=== PATIENT | female | born 2000 | race Caucasian/White ===

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

== ENCOUNTER 2023-03-25 12:55 | Emergency (ER) | payer BC, SELFPAY ==
--- NOTE | 2023-03-25 13:13 | EXP.UTC ---
Discharge Plan Disposition Patient Disposition: Home, Self-Care Condition: Good Prescriptions Prescriptions: New azithromycin [Zithromax] 250 mg tablet 250 mg PO UD DOSE PK Qty: 6 0RF Rx Instructions: Take two (2) tablets today, then one (1) tablet days #2 thru #5 [id number]-[id number]-[id number] [Bromfed DM] 2-30-10 mg/5 mL Syrup 5 ml PO Q6H PRN (Reason: Cough) Qty: 240 0RF Referrals Follow up/Referrals: Libra Garcia PA [Primary Care Provider] - See instructions Activity Restrictions/Add. Instructions Additional Instructions/Restrictions: Drink plenty of fluids. Take tylenol or ibuprofen for pain or fever. Take the medications as directed. Follow up with your regular doctor. GO TO THE ER FOR ANY WORSENING SYMPTOMS Clinical Impressions Clinical Impression: Viral syndrome, Sinusitis Stand Alone Forms Stand Alone Forms: Work/School Release Instructions Patient Instructions: DI for Sinusitis, DI for Viral Syndrome Discharge ED Provider: William Ambrosio [facility] [place] General Stated complaint: fever 101, congestion, headache Time Seen by Provider: 03/25/23 13:13 History of Present Illness Provider Complaint: she states that for the past 1 day she has had sinus congestion, runny nose, fever and malaise. She has had body aches also. Related Data Previous Rx's Medication Instructions Recorded azithromycin 250 mg tablet 250 mg PO UD DOSE PK #6 tabs 03/25/23 (Zithromax) cvhdembdxhnvuih-gwhrmnozurskzul-YN 5 ml PO Q6H PRN Cough #240 mL 03/25/23 2 mg-30 mg-10 mg/5 mL oral syrup (Bromfed DM) Allergies Allergy/AdvReac Type Severity Reaction Status Date / Time Unable to Assess Allergy Verified 01/14/19 13:55 [facility] Disclaimer: The information contained in this section may have been updated after the patient was seen, as this information can be updated by other users. Social History Smoking Status: Never smoker alcohol intake: never current occupational status: employed and student Travel in the last 8 weeks: None ROS Obtained: Yes All systems reviewed & no additional complaints except as documented Constitutional Constitutional: Reports poor appetite Eyes Eyes: Reports system reviewed and no additional complaints, except as documented ENT Ears, Nose, Mouth, and Throat: Reports as per HPI Cardiovascular Cardiovascular: Reports system reviewed and no additional complaints, except as documented and Denies chest pain Respiratory Respiratory: Denies shortness of breath, Denies chest congestion, Reports cough, Denies stridor and Denies wheezing Gastrointestinal Gastrointestingal: Reports system reviewed and no additional complaints, except as documented; Denies abdominal pain, diarrhea or vomiting Musculoskeletal Musculoskeletal: Reports system reviewed and no additional complaints, except as documented and Denies arthralgias Integumentary/Breasts Skin/Breast: Reports system reviewed and no additional complaints, except as documented and Denies rash Neurologic Neurologic: Denies paresthesias Allergic/Immunologic Allergic/Immunologic: Denies wheezing Physical Exam General General appearance: alert and in no apparent distress Eye Eye exam: Present normal appearance, PERRL and EOMI ENT ENT exam: Present mucous membranes moist and normal external ear exam Expanded ENT Exam External ear exam: Present normal external inspection TM/Canal exam: Bilateral TM: erythema and bulging Nose exam: Absent sinus tenderness Nasal speculum exam: Bilateral: normal Mouth exam: Present normal external inspection; Absent drooling Teeth exam: Present normal inspection Throat exam: Present tonsillar erythema and tonsillomegaly Neck Neck exam: Present normal inspection, full ROM and trachea midline; Absent tenderness, lymphadenopathy or thyromegaly Chest Chest inspection: Present normal inspection and symmetric chest wall rise; Absent tenderness or rash Respiratory Respiratory exam:
[2023-03-25 13:20] VITALS: BP 142/82; PULSE 99; RESP 20; TEMP 38; O2SAT 99; BMI 24.0
[2023-03-25 13:38] VITALS: BP 142/82; PULSE 99; RESP 20; TEMP 38; O2SAT 99
== END 2023-03-25 13:41 | disposition home or self-care (01) ==
PROVIDERS: Emergency Provider Nurse Practitioner Family; PCP Physician Assistant
DX: R50.9 Fever, unspecified (principal); R53.81 Other malaise; U07.1 COVID-19
CPT/HCPCS: 99212; 99214; G0463

== ENCOUNTER 2024-07-26 09:38 | Outpatient (CLI) | payer BC, SELFPAY ==
[2024-07-26 09:58] LABS: Basophils # 0.1 K/mm3 (0-0.2); Basophils % 0.6 % (0.1-2.0); Eosinophils # 0.2 K/mm3 (0.0-0.4); Eosinophils % 1.8 % (0.1-12.0); Hematocrit 38.5 % (37.0-47.0); Hemoglobin 13.3 g/dL (12.2-16.2); Lymphocytes # 2.5 K/mm3 (0.7-4.5); Lymphocytes % 24.9 % (10-50); Mean Corpuscular HGB Conc 34.4 g/dL (31.8-35.4); Mean Corpuscular Hemoglobin 30.1 pg (27.0-31.2); Mean Corpuscular Volume 87.4 fl (81-99); Mean Platelet Volume 8.3 fl (7.4-10.4); Monocytes # 0.5 K/mm3 (0.1-1.0); Monocytes % 4.7 % (1.7-9.3); Neutrophils # 6.9 K/mm3 (1.8-7.8); Platelet Count 286 K/mm3 (142-424); Red Cell Distribution Width 13.7 % (11.5-17.5); White Blood Count 10.1 K/mm3 (4.8-10.8)
[2024-07-26 12:25] LABS: Albumin Level 4.6 g/dl (3.5-5.0); Chloride 109 mmol/L (98-107); Potassium 3.8 mmoL/L (3.5-5.1); Sodium 142 mmol/L (136-145)
[2024-07-26 12:28] LABS: Alanine Aminotransferase 16 U/L (12-78); Albumin/Globulin Ratio 1.6 (1.1-1.8); Alkaline Phosphatase 64 U/L (38-126); Anion Gap 13.8 mEq/L (5-15); Aspartate Amino Transferase 25 U/L (14-36); Bilirubin,Total 0.7 mg/dl (0.2-1.3); Blood Urea Nitrogen 17 mg/dl (7-17); Carbon Dioxide 23 mmol/L (22.0-30.0); Estimated Glomerular Filt Rate 90 ml/min (>60); GFR (African American) 109 ML/MIN (>60); Globulin 2.8 g/dL (1.3-3.2); Total Protein,Serum 7.4 g/dl (6.3-8.2)
[2024-07-26 12:29] LABS: Calcium 9.5 mg/dl (8.4-10.2); Glucose 97 mg/dl (74-100)
[2024-07-26 12:58] LABS: Thyroid Stimulating Hormone 1.29 uIU/mL (0.465-4.68)
== END 2024-07-26 23:59 | disposition home or self-care (01) ==
PROVIDERS: PCP Nurse Practitioner Family; Visit Provider Nurse Practitioner Family
DX: R00.2 Palpitations (principal); R53.83 Other fatigue
CPT/HCPCS: 36415; 80050; 80053; 84443; 85025

== ENCOUNTER 2024-07-29 17:02 | Emergency (ER) | payer BC, SELFPAY ==
--- NOTE | 2024-07-29 17:08 | PC.NURSE ---
DR BADILLO AT BEDSIDE
[2024-07-29 17:16] VITALS: BP 141/87; PULSE 127; RESP 16; TEMP 36.4; O2SAT 99; BMI 23.1
--- NOTE | 2024-07-29 17:17 | ECG_ITS ---
APPROVED REPORT Exam: Resting ECG HR:123 bpm ECG Measurements Heart Rate 123 AXES CO 120 P 74 QRSd 90 QRS 83 QT 337 T 61 QTc 410 Conclusion SINUS TACHYCARDIA NONSPECIFIC ST & T-WAVE ABNORMALITY Electronically signed by : CAPO BADILLO, 07/29/2024 23:56:29
--- NOTE | 2024-07-29 17:18 | XR_ITS ---
PROCEDURE INFORMATION: Exam: XR Chest Exam date and time: 07/29/2024 6:52 PM Age: 24 years old Clinical indication: Sternal or substernal pain; Additional info: Cp paplitations TECHNIQUE: Imaging protocol: Radiologic exam of the chest. Views: 1 view. COMPARISON: No relevant prior studies available. FINDINGS: Lungs: Unremarkable. No consolidation. Pleural spaces: Unremarkable. No pleural effusion. No pneumothorax. Heart/Mediastinum: Unremarkable. No cardiomegaly. Bones/joints: Unremarkable. IMPRESSION: No acute findings.
[2024-07-29] MEDS: BELLADONNA ALKALOIDS 60 ML ML PO (17:29)
[2024-07-29] MEDS: FAMOTIDINE 20MG TABLET 20 MG PO (17:29)
[2024-07-29 17:30] VITALS: BP 104/70; PULSE 98; O2SAT 98
--- NOTE | 2024-07-29 17:31 | HMH.EDCP ---
Discharge Plan Disposition Patient Disposition: Home, Self-Care Prescriptions Prescriptions: New esomeprazole magnesium 20 mg capsule,delayed release(DR/EC) 20 mg PO DAILY 56 Days Qty: 56 1RF No Action azithromycin [Zithromax] 250 mg tablet 250 mg PO UD DOSE PK Qty: 6 0RF Rx Instructions: Take two (2) tablets today, then one (1) tablet days #2 thru #5 [id number]-psztpufta-VU [Bromfed DM] 2-30-10 mg/5 mL Syrup 5 ml PO Q6H PRN (Reason: Cough) Qty: 240 0RF Referrals Follow up/Referrals: Santino Sanders MD [Primary Care Provider] - See instructions Sathish Kemp II, MD [Staff Physician] - See instructions Activity Restrictions/Add. Instructions Additional Instructions/Restrictions: Call your family doctor to establish care for this visit to the emergency department and schedule follow-up within 48 hours to ensure improvement. If you have any worsening of your condition or any other concerning signs or symptoms, return to the emergency department or your primary care doctor for further evaluation. Talk to your family doctor about hyperthyroidism and potential treatment versus referral to after school program director for further evaluation. Regarding swallowing symptoms, medicine sent to pharmacy, take this each night before going to bed for 4 to 6 weeks and follow-up with gastroenterology for potential upper endoscopy. Clinical Impressions Clinical Impression: Esophagitis, Hyperthyroidism Print Language Print Language: Citizen Of [place] Discharge ED Provider: Uzair Mayfield [facility] General Chief Complaint: Chest Pain Stated Complaint: acid reflux Time Seen by Provider: 07/29/24 17:07 Mode of Arrival: Ambulatory Source of Information: Patient Limitations: No Limitations Description of Symptoms (Recalled from ER Triage Doc. by RN): pt states x1 mo. she has had burning in her lower sternal area down to her epigastric region. pt states the burning is worse when she wakes up in the am and after eating. pt reports she had an episode of N/V this am. Last night she took pepcid that provided her with some relief. pt also reports feeling like food gets lodged in her throat intermittantly. pt also reports she has been having problems with her heart racing. She is tachycardic at 127BPM. She was recently started on propanolol for this. LMP current, last BM 2d ago. History of Present Illness HPI narrative: Please note that above description of symptoms, in this electronic medical record under categorization of recalled from ER triage doctor by RN are reflective of an initial nursing assessment, however, is not reflective of my full history and physical exam that was personally taken and clarified. Consequentially, this preceding description of symptoms, which may include the patient's categorized chief complaint in the EMR, do not reflect my personal clinical impression, and the ultimate description of history of present illness and patient stated complaints should be deferred to this section of the note. Unless stated otherwise or congruent with this section of the note, additional signs, symptoms, or incongruence should be interpreted as inaccurate with my clinical impression. Related Data Previous Rx's ?Medication ?Instructions ?Recorded azithromycin 250 mg tablet 250 mg PO UD DOSE PK #6 tabs 03/25/23 (Zithromax) nphafaewkcpszkd-lrgdbuolzgezxtl-UM 5 ml PO Q6H PRN Cough #240 mL 03/25/23 2 mg-30 mg-10 mg/5 mL oral syrup (Bromfed DM) esomeprazole magnesium 20 mg 20 mg PO DAILY 8 weeks #56 caps 07/29/24 capsule,delayed release Allergies Allergy/AdvReac Type Severity Reaction Status Date / Time No Known Allergies Allergy Verified 07/29/24 17:26 [facility] Disclaimer: The information contained in this section may have been updated after the patient was seen, as this information can be updated by other users. Social History (Updated 03/25/23 @ 17:20 by William Ambrosio APRN) Smoking Status: Never smoker alcohol intake: never current occupational status: employed and student Travel in the last 8 weeks: None Have you lived/traveled outside US in past 30 days?: No Contact w/someone who lives/traveled outside US past 30 days?: No Exposure to someone with infectious disease in past 14 days?: No Do you have a fever (greater than 100.4 F or 38 C)?: No Have you tested positive for COVID-19: No Exposed to someone with COVID-19 in past 14 days?: No Do you have a sore throat?: No Do you have a cough?: No Do you have any weakness?: No Do you have any diarrhea?: No Are you experiencing any unusual bleeding?: No Do you have any muscle aches/pain?: No Do you have any abdominal pain?: No Are you experiencing loss of taste or smell?: No ROS Obtained: Yes All systems reviewed & no additional complaints except as documented Physical Exam General General appearance: alert Neck Neck exam: Present trachea midline Chest Chest inspection: Present normal inspection and symmetric chest wall rise Respiratory Respiratory exam: Present normal lung sounds bilaterally; Absent respiratory distress, wheezes, stridor, accessory muscle use or prolonged expiratory phase Cardiovascular Cardiovascular exam: Present normal rhythm, tachycardia and other (Pulses equal and symmetric in upper and lower extremities) Extremities Exam Extremities exam: Absent edema Neurological Exam Neurological exam: Present alert, oriented X3 and CN II-XII intact Skin Skin exam: Present warm and dry; Absent cyanosis, diaphoresis or pallor HEART Score HEART Score HEART Score assessment performed?: Yes HEART Score: 0 Critical Care Critical Care Time Critical Care Time: No Medical Decision Making Medical Records Medical records reviewed: Yes I reviewed the patient's medical records. Orlin Inquiry Pt receiving controlled substance: No Orlin was queried for this patient: No Vital Signs Vital Signs: 07/29/24 17:16 07/29/24 17:30 07/29/24 18:00 Temperature 97.6 F Temperature Source Oral Pulse Rate 98 H 93 H Pulse Rate [Left] 127 H Respiratory Rate 16 Blood Pressure 104/70 L 117/80 Blood Pressure [Right Arm] 141/87 H Blood Pressure Mean [Right Arm] 105 Blood Pressure Source [Right Arm] Automatic Cuff Blood Pressure Position [Right Arm] Sitting 02 Sat by Pulse Oximetry 99 98 99 Oxygen Delivery Method Room Air Room Air Room Air 07/29/24 18:30 Temperature Temperature Source Pulse Rate 122 H Pulse Rate [Left] Respiratory Rate Blood Pressure 120/78 Blood Pressure [Right Arm] Blood Pressure Mean [Right Arm] Blood Pressure Source [Right Arm] Blood Pressure Position [Right Arm] 02 Sat by Pulse Oximetry 99 Oxygen Delivery Method Room Air Lab Data Labs: Lab Results 07/29/24 17:24: WBC 14.5 H, RBC 4.58, Hgb 13.3, Hct 39.5, MCV 86.2, MCH 29.0, MCHC 33.7, RDW 12.4, Plt Count 355, MPV 11.1 H, Neut % (Auto) 88.9 H, Lymph % (Auto) 7.9 L, Barton % (Auto) 2.6, Eos % (Auto) 0.1, Baso % (Auto) 0.2, Neut # (Auto) 12.9 H, Lymph # (Auto) 1.2, Barton # (Auto) 0.4, Eos # (Auto) 0.0, Baso # (Auto) 0.0, Total Counted 100, Neutrophils % (Manual) 89 H, Lymphocytes % (Manual) 9 L, Monocytes % (Manual) 2, Platelet Estimate Normal, Anisocytosis 1+, Microcytosis 1+, Ovalocytes 1+, PT 11.6, INR 1.04, APTT 25.6, D-Dimer 0.71 H, Sodium 136, Potassium 4.0, Chloride 109 H, Carbon Dioxide 15 L, Anion Gap 16.0 H, BUN 26 H, Creatinine 0.70, Estimated Creat Clear 122, Estimated GFR 105, Est GFR ( Amer) 127, Glucose 89, Calcium 9.6, Magnesium 2.1, Total Bilirubin 0.9, AST 32, ALT 21, Alkaline Phosphatase 74, Troponin I < 0.01, Total Protein 8.4 H, Albumin 5.1 H, Globulin 3.3 H, Albumin/Globulin Ratio 1.5, Lipase 132, TSH 0.35 L D, Thyroxine (T4) 13.4 H, HCG, Quant < 2 07/29/24 17:40: Lactate 1.4 07/29/24 17:24 07/29/24 17:24 Response Orders (Tests/Meds): ED MEDICATIONS Discontinued Medications Generic Name Dose Route Start Last Admin Trade Name Freq PRN Reason Stop Dose Admin Belladonna Alkaloids 60 ml 07/29/24 17:18 07/29/24 17:29 Belladonna Alkaloids 60 Ml Ml PO 07/29/24 17:19 60 ml ONCE ONE Administration Famotidine 20 mg 07/29/24 17:18 07/29/24 17:29 Famotidine 20mg Tablet PO 07/29/24 17:19 20 mg ONCE ONE Administration Iopamidol 70 ml 07/29/24 20:03 07/29/24 20:05 Iopamidol-370 (76%);100ml Bottle IV 07/29/24 20:04 70 ml ONCE ONE Administration Propranolol HCl 10 mg 07/29/24 19:27 07/29/24 19:46 Propranolol 20mg Tab PO 07/29/24 19:28 10 mg ONCE ONE Administration Sodium Chloride 50 ml 07/29/24 20:03 12/17/24 20:05 0.9 % Sodium Chloride 50 Ml Vial IV 07/29/24 20:04 50 ml ONCE ONE Administration Sodium Chloride 10 ml 07/29/24 20:03 07/29/24 20:05 Sodium Chloride 0.9% 10ml Syr (Rad Only) IV 07/29/24 20:04 10 ml ONCE ONE Administration ORDERS Category Date Time Status CT angio chest PE protocol Stat Cat Scan 07/29/24 19:25 Completed XR chest portable Stat Exams 07/29/24 17:18 Completed Complete Blood Count Auto Diff Stat Lab 07/29/24 17:24 Completed Comprehensive Metabolic Panel Stat Lab 07/29/24 17:24 Completed D-Dimer Stat Lab 07/29/24 17:24 Completed HCG,Quantitative Stat Lab 07/29/24 17:24 Completed HIV Combo Stat Lab 07/29/24 17:24 Received Hep C Ab with Reflex to RNA Stat Lab 07/29/24 17:24 Received Lactic Acid Stat Lab 07/29/24 17:40 Completed Lipase Stat Lab 07/29/24 17:24 Completed Magnesium Stat Lab 07/29/24 17:24 Completed PT INR [Prothrombin Time INR] Stat Lab 07/29/24 17:24 Completed PTT [Activated Partial Thrombo Time] Stat Lab 07/29/24 17:24 Completed T4 (Thyroxine) Stat Lab 07/29/24 17:24 Completed TSH [Thyroid Stimulating Hormone] Stat Lab 07/29/24 17:24 Completed Troponin I Q3H Lab 07/29/24 20:30 Ordered Troponin I Q3H Lab 07/29/24 23:30 Ordered Troponin I Stat Lab 07/29/24 17:24 Completed MDM Narrative Medical Decision Narrative: Is a 24-year-old female history of chronic abdominal pain presenting with epigastric versus chest pain. Patient states this has been going on for few weeks. She states she has had a 10 pound weight loss over the past few weeks as well. Having burning in her epigastrium/lower chest that does not radiate. Primarily associated with food, also worse in the morning after she wakes up and associated with dry cough, sore and raspy throat. States that when she eats, food feels as if it is going to get stuck, but she has not had any instances and with food got stuck and she was unable to swallow up. No fevers or chills, night sweats, yellowing of the skin or eyes, changes in bowel habits, etc. 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 No DVT or PE risk factors. History was obtained via conversation with patient and family. On arrival, patient hemodynamically stable, alert, oriented x4, appropriate, GCS 15, moving all extremities spontaneously, pupils equal and reactive to light. Full physical exam performed and significant for well-appearing female mildly anxious, very well clinically appearing. Lungs are clear bilaterally, tachycardic, no murmurs gallops rubs with normal S1-S2. No lower extremity edema. Differential includes GERD, gastritis, esophagitis, less likely be pericarditis, ACS, [place], pneumothorax, esophageal perforation, among others. Patient was given GI cocktail and Pepcid for symptomatic management and correction of underlying abnormalities. Patient placed on continuous cardiac monitoring and continuous pulse ox with initial blood pressure 141/87, heart rate 27, saturation 99% on room air. Independent interpretation of EKG shows sinus tachycardia 123 bpm with NM interval 120, QRS 90, QTc 410. Normal axis. No evidence of right heart strain. No acute ischemic change. Workup independently interpreted and significant for leukocytosis 14.5 with neutrophilia. Chemistry significant for bicarb of 15. Troponin negative, lipase negative, hCG negative. TSH elevated at 13.4, T4 low at 0.35 consistent with hyperthyroidism. On independent interpretation of imaging, no acute cardiopulmonary disease on chest x-ray. See radiology read for full review of final results. PERC positive, dimer positive. On reevaluation, patient still feeling the same, states that the GI cocktail did seem to help until it wore off. Still probably consistent with GERD. I feel tachycardia is likely most consistent with idiopathic tachycardia versus probable hyperthyroidism, however extended conversation had with patient, mother. Shared decision making landed on CT PE being ordered for further definitive exploration of elevated dimer and tachycardia. On independent interpretation, no evidence of pneumothorax, pulmonary bolus, or other abnormality. On reevaluation, patient tachycardia improved. Given patient presentation, workup, history, this most likely represents hyperthyroidism and tachycardia. Recommended she follow-up with her family doctor regarding this visit to the emergency department and further evaluation. Because patient at baseline without signs or symptoms of clinical decompensation, deemed appropriate for discharge. Results were relayed to patient who voiced understanding and were agreeable to outpatient management and follow up. I discussed my clinical impression with patient and answered all questions. At this time, the evidence for any other entities in the differential is insufficient to warrant any further testing or ED observation. This was explained as well. Advisory was given that persistent or worsening symptoms require further evaluation. I confirmed the understanding of this discussion. [employer] disclaimer Much of this encounter note is an electronic extractor plant operator spoken language to printed text. Electronic extractor plant operator of the spoken language may permit errors. Although I have reviewed the note, some errors may still exist.
[2024-07-29 17:45] LABS: Albumin Level 5.1 g/dl (3.5-5.0); Chloride 109 mmol/L (98-107); Sodium 136 mmol/L (136-145)
[2024-07-29 17:47] LABS: Activated Partial Thrombo Time 25.6 seconds (22.8-30.6); Blood Urea Nitrogen 26 mg/dl (7-17); Creatinine Clearance Estimated 122 mL/min (50-200); Estimated Glomerular Filt Rate 105 ml/min (>60); GFR (African American) 127 ML/MIN (>60)
[2024-07-29 17:48] LABS: Alanine Aminotransferase 21 U/L (12-78); Albumin/Globulin Ratio 1.5 (1.1-1.8); Alkaline Phosphatase 74 U/L (38-126); Aspartate Amino Transferase 32 U/L (14-36); Bilirubin,Total 0.9 mg/dl (0.2-1.3); Calcium 9.6 mg/dl (8.4-10.2); Carbon Dioxide 15 mmol/L (22.0-30.0); Globulin 3.3 g/dL (1.3-3.2); Glucose 89 mg/dl (74-100); Total Protein,Serum 8.4 g/dl (6.3-8.2)
[2024-07-29 17:50] LABS: Hematocrit 39.5 % (37.0-47.0); Hemoglobin 13.3 g/dL (12.2-16.2); Mean Corpuscular HGB Conc 33.7 g/dL (31.8-35.4); Mean Corpuscular Volume 86.2 fl (81-99); Platelet Count 355 K/mm3 (142-424); Red Blood Count 4.58 M/mm3 (4.20-5.40); Red Cell Distribution Width 12.4 % (11.5-17.5); White Blood Count 14.5 K/mm3 (4.8-10.8)
[2024-07-29 17:51] LABS: Basophils % 0.2 % (0.1-2.0); Eosinophils % 0.1 % (0.1-12.0); Lymphocytes # 1.2 K/mm3 (0.7-4.5); Lymphocytes % 7.9 % (10-50); Mean Platelet Volume 11.1 fl (7.4-10.4); Monocytes # 0.4 K/mm3 (0.1-1.0); Monocytes % 2.6 % (1.7-9.3); Neutrophils # 12.9 K/mm3 (1.8-7.8); Neutrophils % 88.9 % (37.0-80.0)
[2024-07-29 17:52] LABS: MANUAL DIFFERENTIAL MANUAL DIFFERENTIAL (MANUAL DIFF)
[2024-07-29 17:59] LABS: Lactic Acid 1.4 mmol/L (0.7-2.1)
[2024-07-29 18:00] VITALS: BP 117/80; PULSE 93; O2SAT 99
[2024-07-29 18:04] LABS: Troponin I < 0.01 ng/ml (0.00-0.034)
[2024-07-29 18:05] LABS: T4 (Thyroxine) 13.4 ug/dl (5.53-11.0)
[2024-07-29 18:18] LABS: INR 1.04 (0.9-1.1); Prothrombin Time 11.6 seconds (10.1-12.5)
[2024-07-29 18:19] LABS: Thyroid Stimulating Hormone 0.35 uIU/mL (0.465-4.68)
[2024-07-29 18:29] LABS: Lipase 132 U/L (23-300)
[2024-07-29 18:30] VITALS: BP 120/78; PULSE 122; O2SAT 99
[2024-07-29 18:30] LABS: Magnesium 2.1 mg/dl (1.6-2.3)
[2024-07-29 18:53] LABS: HCG,Quantitative < 2 mIU/ml (0-5.42)
[2024-07-29 18:57] LABS: D-Dimer 0.71 ug/mL (0.0-0.5)
--- NOTE | 2024-07-29 19:25 | CT_ITS ---
PROCEDURE INFORMATION: Exam: CTA Chest With Contrast Exam date and time: 07/29/2024 8:01 PM Age: 24 years old Clinical indication: Other: Tachycardia, elevated ddimer; Additional info: Tachycardia, dimer elevation, palps TECHNIQUE: Imaging protocol: Computed tomographic angiography of the chest with contrast. Exam focused on the arteries. 3D rendering (Not supervised by radiologist): MIP and/or 3D reconstructed images were created by the technologist. Radiation optimization: All CT scans at this facility use at least one of these dose optimization techniques: automated exposure control; mA and/or kV adjustment per patient size (includes targeted exams where dose is matched to clinical indication); or iterative reconstruction. Contrast material: [id number]; Contrast volume: 70 ml; Contrast route: INTRAVENOUS (IV); COMPARISON: CR XR CHEST PORTABLE 07/29/2024 6:52 PM FINDINGS: Pulmonary arteries: Normal. No pulmonary emboli. Aorta: Unremarkable. No aortic aneurysm. No aortic dissection. Lungs: Unremarkable. No consolidation. No masses. Pleural spaces: Unremarkable. No pneumothorax. No pleural effusion. Heart: Unremarkable. No cardiomegaly. No pericardial effusion. Lymph nodes: Unremarkable. No enlarged lymph nodes. Bones/joints: Unremarkable. No acute fracture. Soft tissues: Unremarkable. IMPRESSION: No acute findings.
[2024-07-29 19:41] LABS: Lymphocytes % 9 % (10-50); Monocytes % 2 % (2-9); Neutrophils % 89 % (42-76); Total Cells Counted 100
[2024-07-29 19:42] LABS: Anisocytosis 1+; Microcytosis 1+; Ovalocytes 1+; Platelet Estimate Normal
[2024-07-29] MEDS: PROPRANOLOL 20MG TAB 10 MG PO (19:46)
[2024-07-29] MEDS: SODIUM CHLORIDE 0.9% 10ML SYR (RAD ONLY) 10 ML IV (20:05)
[2024-07-29] MEDS: 0.9 % SODIUM CHLORIDE 50 ML VIAL IV (20:05)
[2024-07-29] MEDS: IOPAMIDOL-370 (76%);100ML BOTTLE 70 ML IV (20:05)
[2024-07-29 20:30] VITALS: BP 128/81; PULSE 95; RESP 14; TEMP 36.4; O2SAT 98
[2024-07-29 21:08] LABS: HIV Combo NEGATIVE (Negative)
[2024-07-31 06:23] LABS: HCV Ab Non Reactive (Non Reactive)
== END 2024-07-29 20:32 | disposition home or self-care (01) ==
PROVIDERS: Emergency Provider Emergency Medicine; PCP Family Medicine
DX: E05.90 Thyrotoxicosis, unspecified without thyrotoxic crisis or storm (principal); K20.90 Esophagitis, unspecified without bleeding; R07.9 Chest pain, unspecified; R10.13 Epigastric pain; R11.2 Nausea with vomiting, unspecified; R00.2 Palpitations
CPT/HCPCS: 71045; 71275; 80050; 80053; 83605; 83690; 83735; 84436; 84443; 84484; 84702; 85007; 85025; 85378; 85610; 85730; 86803; 87389; 93005; 99285; Q9967